=== PATIENT | male | born 1975 | race Caucasian/White ===

== ENCOUNTER 2017-02-09 15:19 | Emergency (ER) | payer SELFPAY ==
[~2017-02-09] VITALS: Ht 167.6 cm; Wt 92.3 kg
[2017-02-09 15:55] VITALS: BP 135/86
== END 2017-02-09 17:27 | disposition home or self-care (01) ==
LOC: EMS 15:23
DX: R07.89 Other chest pain (principal); I10 Essential (primary) hypertension; I25.2 Old myocardial infarction; F17.290 Nicotine dependence, other tobacco product, uncomplicated
CPT/HCPCS: 93005; 99283

== ENCOUNTER 2024-11-23 12:31 | Inpatient (IN) | payer OTHER ==
[~2024-11-23] VITALS: Ht 167.6 cm; Wt 79.1 kg
[2024-11-23 13:31] LABS: PLATELET COUNT (AUTO) 437 K/uL (150-450); RED BLOOD CELL COUNT(AUTO) 5.10 MIL/uL (4.50-5.90); RED CELL DISTRIBUTION WIDTH 14.1 % (11.5-14.5); WHITE BLOOD COUNT (AUTO) 12.5 K/uL (4.5-11.0)
[2024-11-23 13:32] LABS: RBC MORPHOLOGY COMMENT NORMAL RBC MORPH
[2024-11-23] MEDS: SODIUM CHLORIDE 0.9% 1,000 ML IV ONE (13:35)
[2024-11-23 13:40] LABS: CALCIUM, TOTAL 9.0 mg/dL (8.8-10.5); CREATININE 0.87 mg/dL (0.60-1.30); GLOMERULAR FILTR. RATE CALC > 60 mL/min (>60); GLUCOSE,RANDOM 126 mg/dL (70-110); SODIUM SERUM 136 mmol/L (136-145); UREA NITROGEN, BLOOD 14 mg/dL (7-18)
[2024-11-23 13:48] LABS: TROPONIN I-HIGH SENSITIVITY 10 ng/L (<76)
[2024-11-23 13:49] LABS: LACTIC ACID 0.8 mmol/L (0.4-2.0)
[2024-11-23 14:11] LABS: ASPARTATE AMINOTRANSFERASE 20 U/L (15-37); TOTAL PROTEIN, SERUM 7.6 g/dL (6.4-8.2)
[2024-11-23] MEDS: ONDANSETRON HCL 4 MG/2 ML VIAL IVP ONE (14:39)
[2024-11-23 16:22] LABS: APPEARANCE,URINE HAZY (CLEAR); GLUCOSE, URINE (UA) NEGATIVE (NEGATIVE); LEUKOCYTE ESTERASE ,URINE NEGATIVE (NEGATIVE); NITRATE,URINE NEGATIVE (NEGATIVE); OCCULT BLOOD,URINE NEGATIVE (NEGATIVE); SPECIFIC GRAVITIY, URINE 1.019 (1.003-1.030)
[2024-11-23 16:24] LABS: SQUAMOUS EPITHELIAL CELL,UR Rare /LPF (None Seen)
[2024-11-23] MEDS ORDERED: ALBUTEROL SULFATE 2.5 MG/0.5 ML NEB SOLUTION NEB PRN (19:00)
[2024-11-23] MEDS ORDERED: BISACODYL 10 MG RECTAL RECTAL SUPPOSITORY PR PRN (19:00)
[2024-11-23] MEDS ORDERED: IPRATROPIUM BROMIDE 0.5 MG/2.5 ML NEB SOLUTION NEB PRN (19:00)
[2024-11-23] MEDS ORDERED: MAGNESIUM HYDROXIDE SUSPENSION 30 ML UDCUP PO PRN (19:00)
[2024-11-23 22:55] VITALS: BP 155/86; PULSE 58; RESP 20; TEMP 97.5; O2SAT 97
[2024-11-24] MEDS: HEPARIN SODIUM,PORCINE 5,000 UNITS/ML VIAL SQ SCH (00:48)
[2024-11-24] MEDS: ONDANSETRON HCL 4 MG/2 ML VIAL IVP PRN (00:48)
[2024-11-24] MEDS: KETOROLAC TROMETHAMINE 15 MG/ML VIAL IVP PRN (00:48)
[2024-11-24 06:06] VITALS: BP 142/88; PULSE 62; RESP 18; TEMP 98.9; O2SAT 95
[2024-11-24 08:16] VITALS: BP 137/89; PULSE 69; RESP 18; TEMP 99.3; O2SAT 95
[2024-11-24] MEDS: PANTOPRAZOLE SODIUM 40 MG DR TABLET PO SCH (08:38)
[2024-11-24] MEDS: INFLUENZA VIRUS VACCINE TVS (6MO+) 2025-26/PF 45 MCG/0.5 ML SYRINGE IM. ONE (13:45)
[2024-11-24] MEDS: CHLORHEXIDINE GLUCONATE 2% TOWELETTE [2'S/6'S] TP ONE (15:39)
[2024-11-24] MEDS: ETHYL ALCOHOL 62% ANTISEPTIC NASAL SANITIZER 0.6 ML AMPUL NASAL ONE (15:39)
[2024-11-24] MEDS ORDERED: SODIUM CHLORIDE 0.9% 1,000 ML ONE (15:40)
[2024-11-24] MEDS ORDERED: ONDANSETRON HCL 4 MG/2 ML VIAL ONE (15:46)
[2024-11-24] MEDS: ONDANSETRON HCL 4 MG/2 ML VIAL IVP ONE (16:08)
[2024-11-24] MEDS ORDERED: NITROGLYCERIN 0.4 MG SUBLINGUAL TABLET #25 SL ONE (16:54)
[2024-11-24] MEDS: NITROGLYCERIN 0.4 MG SUBLINGUAL TABLET #25 SL ONE (17:19)
[2024-11-24 20:16] VITALS: BP 123/77; PULSE 68; RESP 18; TEMP 99; O2SAT 95
[2024-11-24] MEDS: ZOLPIDEM TARTRATE 5 MG TABLET PO PRN (20:18)
[2024-11-25 02:40] VITALS: BP 149/89; PULSE 81; RESP 18; TEMP 98.4; O2SAT 96
[2024-11-25 08:39] VITALS: BP 134/81; PULSE 68; RESP 18; TEMP 99.3; O2SAT 97
[2024-11-25 14:11] LABS: TROPONIN I-HIGH SENSITIVITY 13 ng/L (<76)
[2024-11-25 16:56] LABS: PLATELET COUNT (AUTO) 371 K/uL (150-450); RED BLOOD CELL COUNT(AUTO) 4.72 MIL/uL (4.50-5.90); RED CELL DISTRIBUTION WIDTH 13.8 % (11.5-14.5); WHITE BLOOD COUNT (AUTO) 18.9 K/uL (4.5-11.0)
[2024-11-25 17:05] LABS: CALCIUM, TOTAL 8.4 mg/dL (8.8-10.5); CREATININE 0.58 mg/dL (0.60-1.30); GLOMERULAR FILTR. RATE CALC > 60 mL/min (>60); GLUCOSE,RANDOM 110 mg/dL (70-110); SODIUM SERUM 136 mmol/L (136-145); UREA NITROGEN, BLOOD 11 mg/dL (7-18)
[2024-11-25 17:10] LABS: ASPARTATE AMINOTRANSFERASE 12 U/L (15-37); TOTAL PROTEIN, SERUM 6.6 g/dL (6.4-8.2)
[2024-11-25 18:52] VITALS: BP 117/75; PULSE 88; RESP 16; TEMP 99.9; O2SAT 97
[2024-11-25] MEDS: ACETAMINOPHEN 325 MG TABLET PO PRN (18:57)
[2024-11-25 20:13] VITALS: BP 118/64; PULSE 64; RESP 17; TEMP 98.8; O2SAT 95
[2024-11-25 23:28] VITALS: BP 119/73; PULSE 65; RESP 17; TEMP 98.8; O2SAT 96
[2024-11-25] MEDS: ACETAMINOPHEN/CODEINE 300-30 MG TABLET PO PRN (23:53)
[2024-11-26 03:28] VITALS: BP 132/78; PULSE 65; RESP 18; TEMP 98.4; O2SAT 96
[2024-11-26 07:32] LABS: TROPONIN I-HIGH SENSITIVITY 12 ng/L (<76)
[2024-11-26 08:07] VITALS: BP 128/84; PULSE 67; RESP 18; TEMP 98.4; O2SAT 96
[2024-11-26] MEDS ORDERED: SODIUM CHLORIDE 0.9% 250 ML IV ONE (09:51)
[2024-11-26 09:57] LABS: PLATELET COUNT (AUTO) 329 K/uL (150-450); RED BLOOD CELL COUNT(AUTO) 4.67 MIL/uL (4.50-5.90); RED CELL DISTRIBUTION WIDTH 14.0 % (11.5-14.5); WHITE BLOOD COUNT (AUTO) 16.7 K/uL (4.5-11.0)
[2024-11-26] MEDS: LEVOFLOXACIN 500 MG/D5% WATER 100 ML IV SCH (09:58)
[2024-11-26 10:20] LABS: CALCIUM, TOTAL 8.3 mg/dL (8.8-10.5); CREATININE 0.60 mg/dL (0.60-1.30); GLOMERULAR FILTR. RATE CALC > 60 mL/min (>60); GLUCOSE,RANDOM 149 mg/dL (70-110); SODIUM SERUM 137 mmol/L (136-145); UREA NITROGEN, BLOOD 10 mg/dL (7-18)
[2024-11-26 10:26] LABS: ASPARTATE AMINOTRANSFERASE 15 U/L (15-37); TOTAL PROTEIN, SERUM 6.8 g/dL (6.4-8.2)
[2024-11-26 11:39] VITALS: BP 123/76; PULSE 57; RESP 18; TEMP 98.2; O2SAT 95
[2024-11-26] MEDS: POTASSIUM CHLORIDE 20 MEQ ER TABLET PO ONE (13:21)
[2024-11-26 16:13] VITALS: BP 113/72; PULSE 66; RESP 18; TEMP 99; O2SAT 97
[2024-11-26 20:28] VITALS: BP 111/66; PULSE 71; RESP 18; TEMP 99; O2SAT 97
[2024-11-26 23:52] VITALS: BP 128/64; PULSE 81; RESP 19; TEMP 102.9; O2SAT 96
[2024-11-27] VITALS (7 sets, daily range): BP systolic 114–140; BP diastolic 64–78; PULSE 58–79; RESP 17–19; TEMP 98.8–101.3; O2SAT 94–98
[2024-11-27 01:07] LABS: APPEARANCE,URINE CLEAR (CLEAR); GLUCOSE, URINE (UA) NEGATIVE (NEGATIVE); LEUKOCYTE ESTERASE ,URINE TRACE (NEGATIVE); NITRATE,URINE NEGATIVE (NEGATIVE); OCCULT BLOOD,URINE NEGATIVE (NEGATIVE); SPECIFIC GRAVITIY, URINE 1.034 (1.003-1.030)
[2024-11-27 01:14] LABS: SQUAMOUS EPITHELIAL CELL,UR Few /LPF (None Seen)
[2024-11-27 06:39] LABS: PLATELET COUNT (AUTO) 352 K/uL (150-450); RED BLOOD CELL COUNT(AUTO) 4.63 MIL/uL (4.50-5.90); RED CELL DISTRIBUTION WIDTH 13.4 % (11.5-14.5); WHITE BLOOD COUNT (AUTO) 9.8 K/uL (4.5-11.0)
[2024-11-27 06:50] LABS: CALCIUM, TOTAL 8.2 mg/dL (8.8-10.5); CREATININE 0.72 mg/dL (0.60-1.30); GLOMERULAR FILTR. RATE CALC > 60 mL/min (>60); GLUCOSE,RANDOM 102 mg/dL (70-110); SODIUM SERUM 137 mmol/L (136-145); UREA NITROGEN, BLOOD 14 mg/dL (7-18)
[2024-11-28] VITALS (13 sets, daily range): BP systolic 112–143; BP diastolic 71–84; PULSE 52–73; RESP 17–18; TEMP 97.7–99; O2SAT 94–100
[2024-11-28] MEDS ORDERED: RINGERS SOLUTION,LACTATED 1,000 ML IV ONE (06:34)
[2024-11-28 07:55] LABS: CALCIUM, TOTAL 8.6 mg/dL (8.8-10.5); CREATININE 0.60 mg/dL (0.60-1.30); GLOMERULAR FILTR. RATE CALC > 60 mL/min (>60); GLUCOSE,RANDOM 91 mg/dL (70-110); SODIUM SERUM 140 mmol/L (136-145); UREA NITROGEN, BLOOD 9 mg/dL (7-18)
[2024-11-28 07:56] LABS: PLATELET COUNT (AUTO) 387 K/uL (150-450); RED BLOOD CELL COUNT(AUTO) 5.06 MIL/uL (4.50-5.90); RED CELL DISTRIBUTION WIDTH 14.0 % (11.5-14.5); WHITE BLOOD COUNT (AUTO) 7.4 K/uL (4.5-11.0)
[2024-11-28] MEDS: RINGERS SOLUTION,LACTATED 1,000 ML IV SCH (08:18)
[2024-11-28] MEDS: RINGERS SOLUTION,LACTATED 1,000 ML IV ONE (08:43)
[2024-11-28] MEDS: ETHYL ALCOHOL 62% ANTISEPTIC NASAL SANITIZER 0.6 ML AMPUL NASAL ONE (08:43)
[2024-11-28] MEDS: CHLORHEXIDINE GLUCONATE 2% TOWELETTE [2'S/6'S] TP ONE (08:43)
[2024-11-28] MEDS ORDERED: CefTRIAXone SODIUM 1 GM/VIAL ONE (09:08)
[2024-11-28] MEDS ORDERED: SODIUM CHLORIDE 0.9% 100 ML ONE (09:09)
[2024-11-28] MEDS ORDERED: FentaNYL CITRATE PF 100 MCG/2 ML VIAL IVP PRN (09:30)
[2024-11-28] MEDS ORDERED: MEPERIDINE-PF 25 MG/ML VIAL IVP PRN (09:30)
[2024-11-28] MEDS: BUPIVACAINE 0.25%/EPI 1:200,000/PF 30 ML VIAL ONE (09:33)
[2024-11-28] MEDS ORDERED: HYDROCODONE/ACETAMINOPHEN 5-325 MG TABLET PO PRN (10:15)
[2024-11-28] MEDS ORDERED: DEXAMETHASONE SOD PHOS 4 MG/ML VIAL ONE (12:00)
[2024-11-28] MEDS ORDERED: ROCURONIUM BROMIDE 10 MG/ML 5 ML VIAL ONE (12:00)
[2024-11-28] MEDS ORDERED: ONDANSETRON HCL 4 MG/2 ML VIAL ONE (12:00)
[2024-11-28] MEDS ORDERED: LIDOCAINE/PF 2% 5 ML VIAL ONE (12:00)
[2024-11-28] MEDS ORDERED: PROPOFOL 1% 20 ML VIAL IVP ONE (12:00)
[2024-11-28] MEDS ORDERED: SUGAMMADEX SODIUM 200 MG/2 ML VIAL IVP ONE (12:00)
[2024-11-28] MEDS: FAMOTIDINE 20 MG TABLET PO SCH (12:53)
[2024-11-28] MEDS: IBUPROFEN 200 MG TABLET PO SCH (16:59)
[2024-11-28] MEDS: OXYGEN THERAPY IH SCH (20:11)
[2024-11-28] MEDS: MORPHINE SULFATE 4 MG/ML SYRINGE IVP PRN (20:19)
[2024-11-29] VITALS: BP 133/74; PULSE 48; RESP 17; TEMP 97.9; O2SAT 97
[2024-11-29 03:54] VITALS: BP 153/95; PULSE 47; RESP 18; TEMP 97.9; O2SAT 100
[2024-11-29 08:18] VITALS: BP 119/73; PULSE 61; RESP 19; TEMP 98.2; O2SAT 98
[2024-11-29 12:02] VITALS: BP 135/74; PULSE 56; RESP 16; TEMP 98.4; O2SAT 97
== END 2024-11-29 16:30 | DRG 354 ==
LOC: EMS 12:31 → EDH 16:43 → CMPBEDREQ 21:02 → 6N 22:58 → 5N 11-25 18:46
PROVIDERS: ADMIT Hospitalist; ATTEND Hospitalist
PROC: 0WQF0ZZ Repair Abdominal Wall, Open Approach (ICD-10-PCS; principal; 2024-11-28 09:00)
DX: K42.0 Umbilical hernia with obstruction, without gangrene (principal); E44.0 Moderate protein-calorie malnutrition; D72.829 Elevated white blood cell count, unspecified; I10 Essential (primary) hypertension; F17.200 Nicotine dependence, unspecified, uncomplicated; E87.6 Hypokalemia; Z88.0 Allergy status to penicillin; I25.2 Old myocardial infarction; Z68.28 Body mass index [BMI] 28.0-28.9, adult
CPT/HCPCS: 71045; 74176; 80048; 80053; 80076; 81001; 83605; 83690; 83880; 84484; 85025; 87040; 87081; 88302; 93005; 93306; 96374; 96375; 99285; J0696; J1100; J1171; J1644; J1885; J1956; J2270; J2405; J2704; J3490; J7030; J7050; J7120; 36415-L1; 36415-TC; Z7610